=== PATIENT | male | born 1980 | race Caucasian/White ===

== ENCOUNTER 2018-08-06 19:15 | Emergency (ER) | payer SELFPAY ==
[2018-08-06 19:36] VITALS: Ht 180.3 cm
[2018-08-06 22:05] LABS: BASOPHIL % 0.2 % (0-2); PLATELET COUNT 226 x10^3mcL (130-400)
[2018-08-06 22:06] LABS: RED CELL DISTRIBUTION WIDTH 15.8 % (11.5-14.5)
[2018-08-06 22:15] LABS: CALCIUM 8.6 mg/dL (8.5-10.1); CARBON DIOXIDE 26.5 mmol/L (21-32); CHLORIDE SERUM 103 mmol/L (98-107); CREATININE SERUM 1.1 mg/dL (0.7-1.3); GFR1 > 60 mL/min; GLUCOSE SERUM 98 mg/dL (74-106); POTASSIUM SERUM 3.7 mmol/L (3.5-5.1); SODIUM SERUM 138 mmol/L (136-145)
[2018-08-06 22:49] VITALS: BP 127/103
== END 2018-08-06 22:49 | disposition home or self-care (01) ==
LOC: ED 19:15
PROVIDERS: Emergency Medicine
DX: K62.5 Hemorrhage of anus and rectum (principal); R42 Dizziness and giddiness; F10.10 Alcohol abuse, uncomplicated
CPT/HCPCS: 36415

== ENCOUNTER 2018-12-15 06:21 | Emergency (ER) | payer OTHER ==
[~2018-12-15] VITALS: Ht 180.3 cm; Wt 87.7 kg
[2018-12-15 06:32] VITALS: Ht 180.3 cm; Wt 87.7 kg
[2018-12-15 07:52] VITALS: BP 106/49
== END 2018-12-15 07:52 | disposition home or self-care (01) ==
LOC: ED 06:21
DX: J98.01 Acute bronchospasm (principal)